=== PATIENT | female | born 1995 | race Caucasian/White ===

== ENCOUNTER 2019-11-12 20:43 | Emergency (ER) | payer OTHER ==
[2019-11-12] MEDS ORDERED: Ketorolac Tromethamine 30 MG/ML VIAL ONE (21:07)
[2019-11-12 21:13] LABS: Pregnancy Test - Urine (BHCG) Negative (Negative); Specific Gravity 1.025 (1.002-1.036)
[2019-11-12 21:14] LABS: Pregu Control Background? CLEAR/WHITE (CLR/WHITE); Pregu Control Bar Appear? YES (CONTROL BAR)
[2019-11-12 21:16] LABS: Bilirubin Negative (Negative); Blood, Urine Trace (Negative); Glucose, Urine (Dipstick) Negative (Negative); Leukocyte Negative (Negative); Nitrite Negative (Negative); Protein, Urine (Dipstick) Negative (Neg-Trace); Urobilinogen 0.2 mg/dL (Less than 2)
[2019-11-12 21:18] LABS: Clarity Hazy (Clear)
[2019-11-12 21:26] LABS: Bacteria/HPF 1+ HPF (None Seen); RBC/HPF 0-3 HPF (0-3); Squamous Epithelial 0-3 HPF (0-3); WBC/HPF 0-3 HPF (0-3)
[2019-11-12 21:30] LABS: #Basophils 0.1 thou/uL (0.0-0.2); #Eosinphils 0.1 thou/uL (0.0-0.7); #Lymphocytes 2.4 thou/uL (1.20-3.40); #Monocytes 0.5 thou/uL (0.11-0.59); #Neutrophils 5.5 thou/uL (1.40-6.50); %Basophils 0.8 % (0.0-1.0); %Lymphocytes 28.1 % (21.0-51.0); %Monocytes 6.2 % (0.0-10.0); %Neutrophils 63.8 % (42.0-75.0); Mean Corpuscular HGB CONC 32.3 g/dL (32.0-36.0); Mean Corpuscular Hemoglobin 29.6 pg (27.0-31.0); Mean Corpuscular Volume 91.8 fL (78.0-98.0); Mean Platelet Volume 6.9 fL (7.4-10.4); Platelet Count 308 thou/uL (130-400); RBC Distribution Width 12.3 % (11.5-14.5); White Blood Cell (WBC) Count 8.6 thou/uL (4.8-10.8)
[2019-11-12 21:36] LABS: ALT (SGPT) 18 U/L (8-55); AST (SGOT) 14 U/L (5-34); Albumin 4.4 g/dL (3.5-5.0); Alkaline Phosphatase 63 U/L (40-110); Anion Gap 14 mmol/L (10-20); BUN (Urea Nitrogen) 12 mg/dL (7.0-18.7); Bilirubin, Total 0.4 mg/dL (0.2-1.2); Calc. Creatinine Clearance 0 mL/min (70-130); Calcium 9.2 mg/dL (7.8-10.44); Carbon Dioxide 24 mmol/L (22-29); Chloride 104 mmol/L (98-107); Estimated GFR-MDRD 88; Globulin 3.2 g/dL (2.4-3.5); Glucose 108 mg/dL (70-105); Protein, Total 7.6 g/dL (6.0-8.3); Sodium 138 mmol/L (136-145)
--- NOTE | 2019-11-13 09:02 | CT ---
CT ABDOMEN AND PELVIS WITHOUT CONTRAST: DATE: 11/12/2019. COMPARISON: No prior scans were available for comparison. FINDINGS: The lung bases are clear. The liver, spleen, pancreas, gallbladder, adrenal glands, kidneys, and abd ominal aorta were unremarkable in appearance within the limitations of a noncontrast study. The kidn eys showed no sign of calculi or hydronephrosis. No renal calculi were seen. The major finding on the study is a focal area of inflammation around a segment of lower descending c olon near the proximal sigmoid colon. This is at about the level of the left iliac crest. The bowel is not dilated. There does not appear to be significant constipation. The appendix appears normal. No free air or free fluid was seen. CT of the pelvis was remarkable only for a 2.3 cm left ovarian cyst which probably is unrelated to th e current symptoms. There may be a small amount of fluid in the cul-de-sac. IMPRESSION: 1. Focal area of inflammation in the left lower quadrant around the lower descending colon. In an o lder individual, diverticulitis would be the most common cause. In this age group, that would be les s likely. A focal area of inflammatory bowel disease or colitis might be a possibility. One could i nitially treat her as such and then refer her to a sparmaker for further followup of this ab normal area. 2. A 2.3 cm left ovarian cyst, probably not related to the current issues. Findings discussed with Dr. Griffin at 2200 on 11/12/2019. CODE CR POS: HOME
== END 2019-11-12 22:18 | disposition home or self-care (01) ==
LOC: BURERS 20:43
DX: K52.9 Noninfective gastroenteritis and colitis, unspecified (principal); Z79.899 Other long term (current) drug therapy
CPT/HCPCS: 74176; 80053; 81003; 81015; 81025; 85025; 87086; 96361; 96374; J1885

== ENCOUNTER 2020-08-06 00:45 | Emergency (ER) | payer OTHER ==
[2020-08-06] MEDS ORDERED: Sodium Chloride 0.9% 100 ML ONE (01:31)
[2020-08-06] MEDS ORDERED: cefTRIAXone\\ROCEPHIN 2 GM VIAL ONE (01:31)
[2020-08-06] MEDS ORDERED: Aspirin Chewable 81 MG TAB ONE (01:31)
[2020-08-06 01:33] LABS: #Lymphocytes 0.5 thou/uL (1.20-3.40); #Monocytes 0.2 thou/uL (0.11-0.59); %Basophils 0.4 % (0.0-1.0); %Eosinophils 0.1 % (0.0-10.0); %Lymphocytes 9.7 % (21.0-51.0); %Monocytes 4.7 % (0.0-10.0); %Neutrophils 85.2 % (42.0-75.0); Hemoglobin 13.1 g/dL (12.0-16.0); Mean Corpuscular HGB CONC 32.6 g/dL (32.0-36.0); Mean Corpuscular Hemoglobin 29.5 pg (27.0-31.0); Mean Corpuscular Volume 90.5 fL (78.0-98.0); Mean Platelet Volume 7.3 fL (7.4-10.4); Platelet Count 176 thou/uL (130-400); RBC Distribution Width 12.9 % (11.5-14.5); Red Blood Cell (RBC) Count 4.43 mill/uL (4.20-5.40); White Blood Cell (WBC) Count 4.7 thou/uL (4.8-10.8)
[2020-08-06 01:36] LABS: PTT 29.2 sec (22.9-36.1); Prothrombin Time 13.4 sec (12.0-14.7)
[2020-08-06 01:47] LABS: ALT (SGPT) 76 U/L (8-55); AST (SGOT) 41 U/L (5-34); Alkaline Phosphatase 88 U/L (40-110); Anion Gap 17 mmol/L (10-20); BUN (Urea Nitrogen) 11 mg/dL (7.0-18.7); Bilirubin, Total 0.3 mg/dL (0.2-1.2); Calc. Creatinine Clearance 0 mL/min (70-130); Calcium 8.3 mg/dL (7.8-10.44); Carbon Dioxide 20 mmol/L (22-29); Chloride 105 mmol/L (98-107); Globulin 3.6 g/dL (2.4-3.5); Glucose 149 mg/dL (70-105); Potassium 3.7 mmol/L (3.5-5.1); Protein, Total 7.6 g/dL (6.0-8.3); Sodium 138 mmol/L (136-145)
[2020-08-06 01:48] LABS: D-Dimer Test 0.45 *mcg/mL (0.27-0.43)
[2020-08-06 02:22] LABS: Base Excess-Venous -1.6 mmol/L (-2.0 to 3.0); Bicarbonate (HCO3v) 22.4 mmol/L (22.0-28.0); Calcium, Ionized 1.01 mmol/L (1.15-1.33); Chloride 105 mmol/L (98-107); Hemoglobin - Calc 13.9 g/dL (12.0-16.0); Potassium 3.6 mmol/L (3.5-5.1); Sodium 139 mmol/L (138-145); T. Carbon Dioxide 23.5 mmol/L (22.0-28.0)
[2020-08-06 03:47] LABS: Bilirubin Negative (Negative); Blood, Urine Negative (Negative); Clarity Clear (Clear); Glucose, Urine (Dipstick) 100 mg/dL (Negative); Ketone, Urine Negative (Negative); Leukocyte Negative (Negative); Nitrite Negative (Negative); Protein, Urine (Dipstick) Negative (Neg-Trace); Specific Gravity, Urine 1.025 (1.005-1.030); Urobilinogen 0.2 mg/dL (Less than 2); pH, Urine 6.5 (5.0-9.0)
--- NOTE | 2020-08-06 07:24 | RAD ---
PORTABLE CHEST: Date: 08/06/2020 An AP portable film at 1319 hours shows some patchy ground-glass infiltrates in the lower lobes, a li ttle denser on the left than the right. Given the patient being COVID-positive, this is presumably du e to that infection. The upper lobes are relatively clear. There are no effusions. The heart size is normal. IMPRESSION: Patchy lower lobe infiltrates. POS: HOME
== END 2020-08-06 04:23 | disposition short-term general hospital (02) ==
LOC: BURERS 00:45
DX: U07.1 COVID-19 (principal); J12.82 Pneumonia due to coronavirus disease 2019; Z79.899 Other long term (current) drug therapy
CPT/HCPCS: 71045; 80053; 81003; 82330; 82803; 83605; 85025; 85379; 85610; 85730; 87040; 87086; 94760; 96365; J0696; J3490

== ENCOUNTER 2020-08-21 13:24 | Outpatient (CLI) | payer OTHER ==
--- NOTE | 2020-08-21 17:48 | RAD ---
CHEST TWO VIEWS: 08/21/20 Some of the patchy infiltrate seen in the lower lobes on the left have improved slightly in the inter eden. Some in the right base have consolidated a bit and become a little more dense. The upper lobes s eem relatively clear. There is no congestion of vessels or pleural fluid. The heart is normal in size . IMPRESSION: Slight improvement in left basilar infiltrates. Some of the right basilar infiltrates are a little le ss diffuse and a little more consolidated and dense today. POS: HOME
== END 2020-08-21 13:25 | disposition home or self-care (01) ==
LOC: BURRAD 13:24
PROVIDERS: ATTEND Family Medicine
DX: U07.1 COVID-19 (principal); R04.2 Hemoptysis; R00.0 Tachycardia, unspecified; R91.8 Other nonspecific abnormal finding of lung field
CPT/HCPCS: 71046

== ENCOUNTER 2020-09-09 18:43 | Emergency (ER) | payer OTHER ==
[2020-09-09 19:23] LABS: #Eosinphils 0.1 thou/uL (0.0-0.7); #Monocytes 0.5 thou/uL (0.11-0.59); #Neutrophils 3.9 thou/uL (1.40-6.50); %Basophils 0.6 % (0.0-1.0); %Eosinophils 1.2 % (0.0-10.0); %Lymphocytes 30.9 % (21.0-51.0); %Monocytes 6.8 % (0.0-10.0); %Neutrophils 60.5 % (42.0-75.0); Hemoglobin 13.5 g/dL (12.0-16.0); Mean Corpuscular HGB CONC 32.7 g/dL (32.0-36.0); Mean Corpuscular Hemoglobin 29.5 pg (27.0-31.0); Mean Corpuscular Volume 90.2 fL (78.0-98.0); Mean Platelet Volume 6.2 fL (7.4-10.4); Platelet Count 331 thou/uL (130-400); Red Blood Cell (RBC) Count 4.57 mill/uL (4.20-5.40); White Blood Cell (WBC) Count 6.5 thou/uL (4.8-10.8)
[2020-09-09 19:40] LABS: ALT (SGPT) 21 U/L (8-55); AST (SGOT) 15 U/L (5-34); Albumin 4.4 g/dL (3.5-5.0); Alkaline Phosphatase 66 U/L (40-110); Anion Gap 15 mmol/L (10-20); BHCG - Serum Negative (NEGATIVE); BUN (Urea Nitrogen) 13 mg/dL (7.0-18.7); Bilirubin, Total 0.6 mg/dL (0.2-1.2); Calc. Creatinine Clearance 0 mL/min (70-130); Calcium 9.8 mg/dL (7.8-10.44); Carbon Dioxide 26 mmol/L (22-29); Chloride 103 mmol/L (98-107); Globulin 3.3 g/dL (2.4-3.5); Glucose 108 mg/dL (70-105); Potassium 4.1 mmol/L (3.5-5.1); Pregs Control Background? CLEAR/WHITE (CLR/WHITE); Pregs Control Bar Appear? YES (CONTROL BAR); Protein, Total 7.7 g/dL (6.0-8.3); Sodium 140 mmol/L (136-145)
--- NOTE | 2020-09-09 20:14 | RAD ---
PORTABLE CHEST: Date: 09-09-2020 Comparison: 08-21-2020 FINDINGS: This portable film at 1913 shows resolution of the patchy area seen in the lower lobes previously. No new infiltrates are present. There is no vascular congestion or edema. The mediastinum appears cat l. IMPRESSION: Improvement since 08-21-2020. Resolution of prior infiltrates. POS: HOME
== END 2020-09-09 20:27 | disposition home or self-care (01) ==
LOC: BURERS 18:43
DX: R00.2 Palpitations (principal)
CPT/HCPCS: 36415; 71045; 80053; 83880; 84484; 84703; 85025; 85379; 93005

== ENCOUNTER 2021-02-03 10:11 | Emergency (ER) | payer OTHER ==
[2021-02-03 17:56] LABS: HIV (1/2) Antibody/Antigen Non-Reactive (NonReactive); HIV 1/2 INDEX 0.16 S/CO (<1.00); Hep C IgG Ab Non-Reactive (NonReactive); Hep C Index 0.27 S/CO (0-0.79)
[2021-02-03 18:03] LABS: HBSAB Concentration 33.58 mIU/mL; Hep B Surf AB Reactive (NonReactive)
== END 2021-02-03 11:00 | disposition home or self-care (01) ==
LOC: BURERS 10:11
DX: S61.237A Puncture wound without foreign body of left little finger without damage to nail, initial encounter (principal); W46.0XXA Contact with hypodermic needle, initial encounter
CPT/HCPCS: 86706; 86803; 87389; 99282

== ENCOUNTER 2021-07-15 21:23 | Emergency (ER) | payer OTHER | END 2021-07-15 21:45 | disposition home or self-care (01) | LOC: BURERS 21:23 | DX: I47.9 Paroxysmal tachycardia, unspecified (principal); E66.9 Obesity, unspecified; Z86.16 Personal history of COVID-19; Z79.899 Other long term (current) drug therapy | CPT/HCPCS: 93005 ==